=== PATIENT | male | born 1965 | race Caucasian/White ===

== ENCOUNTER 2016-04-08 13:45 | Emergency (ER) | payer BC ==
[2016-04-08 14:22] VITALS: BP 129/83
--- NOTE | 2016-04-08 17:40 | RAD ---
HISTORY: Coughing, rib pain COMPARISONS: Chest x-ray dated November 13, 2014 VIEWS: 4, Frontal view of the chest with frontal and oblique views of the right hemithorax. FINDINGS: There is no displaced rib fracture or pneumothorax. The visualized lungs are clear. And IVC filter is noted IMPRESSION: NO DISPLACED RIB FRACTURE OR PNEUMOTHORAX
[2016-04-08] MEDS ORDERED: HYDROcodone/ACETAMIN 5-325 MG* 1 TAB PO ONE (17:44)
--- NOTE | 2016-04-08 18:40 | ED ---
Christian Castro Billy, scribed for Jace Cole MD on 04/08/16 at 1547 . HPI Chest Pain - HPI Summary HPI Summary: Patient is a 50 year-old male coming to [facility] presenting with constant right- lateral rib pain starting 4-5 days ago. Pain is worse with movement. Patient states he fell on his buttocks 5 days ago. Denies any recent strenuous activity or heavy lifting. Denies N/V. Patient had similar symptoms last year. - History of Current Complaint Chief Complaint: EDChestWallPain Time Seen by Provider: 04/08/16 15:19 Hx Obtained From: Patient Onset/Duration: Started Days Ago, Still Present Timing: Constant Initial Severity: Moderate Current Severity: Moderate Pain Intensity: 6 Pain Scale Used: 0-10 Numeric Chest Pain Location: Right Lateral Chest Pain Radiates: No Character: Other: - rib pain Aggravating Factor(s): Movement Alleviating Factor(s): Nothing Associated Signs and Symptoms: Negative: Nausea, Vomiting - Additional Pertinent History Primary Care Physician: MANASA - Allergy/Home Medications Allergies/Adverse Reactions: Allergies Allergy/AdvReac Type Severity Reaction Status Date / Time Aspirin Allergy Unknown Verified 04/07/13 11:31 Reaction Details Home Medications: Home Medications Insulin GLARGINE(*) [Lantus(*)] 50 units SUBCUT QAM 04/08/16 [History Confirmed 04/08/16] PMH/Surg Hx/FS Hx/Imm Hx Endocrine/Hematology History: Reports: Hx Diabetes Cardiovascular History: Reports: Hx Coronary Artery Disease, Hx Hypercholesterolemia, Hx Hypertension Respiratory History: Reports: Hx Sleep Apnea - evaluation for 08/2013 GI History: Reports: Other GI Disorders - fatty liver History: Reports: Hx Kidney Stones, Other Problems/Disorders - ED Musculoskeletal History: Reports: Other Musculoskeletal History - STROKE, LT SIDED WEAKNESS Neurological History: Reports: 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 Psychiatric History: Reports: Hx Depression - Surgical History Surgery Procedure, Year, and Place: craniotomy, tracheostomy, gastrostomy, ivc filter placement, angioplasty Infectious Disease History: No Infectious Disease History: Denies: Traveled Outside the [place] in Last 30 Days - Family History Known Family History: Positive: Cardiac Disease, Hypertension, Diabetes - Social History Alcohol Use: None Substance Use Type: Reports: None Smoking Status (MU): Former Smoker Type: Cigarettes Have You Smoked in the Last Year: No Review of Systems Positive: Other - right rib pain Negative: Vomiting, Nausea All Other Systems Reviewed And Are Negative: Yes Physical Exam - Summary Physical Exam Summary: Vital signs: reviewed General: Patient is comfortable lying in stretcher with no signs of distress HEENT: within normal limits CHEST: positive left rib cage tenderness at palpation mid clavicular line. Lungs: CTA B/L CVS: S1 & S2 present. No murmurs appreciated. ABDOMEN: Soft, non-tender. No signs of distention. No rebound no guarding, and no masses palpated. Bowel sounds are normal. EXTREMITIES: FROM in all major joints, no edema, no cyanosis or clubbing. NEURO: Alert and oriented x 3. No acute neurological deficits. Speech is normal and follows commands. SKIN: Dry and warm Triage Information Reviewed: Yes Vital Signs On Initial Exam: Initial Vitals Temp Pulse Resp BP Pulse Ox 97.9 F 68 20 129/83 98 04/08/16 14:18 04/08/16 14:18 04/08/16 14:18 04/08/16 14:18 04/08/16 14:18 Vital Signs Reviewed: Yes Diagnostics - Vital Signs Vital Signs Temp Pulse Resp BP Pulse Ox 04/08/16 14:18 97.9 F 68 20 129/83 98 - Laboratory Lab Statement: Any lab studies that have been ordered have been reviewed, and results considered in the medical decision making process. - Radiology Rib XR Xray Interpretation: No Acute Changes Radiology Interpretation Completed By: Radiologist - EKG 1422 EKG Interpretation: NSR 68 bpm, no ST elevation Chest Pain Course/Dx - Course Assessment/Plan: Patient is a 50 year-old male coming to [facility] presenting with constant right-lateral rib pain starting 4-5 days ago. Pain is worse with movement. Patient states he fell on his buttocks 5 days ago. Denies any recent strenuous activity or heavy lifting. Denies N/V. Patient had similar symptoms last year. Rib x-ray shows no fracture or dislocation. It seems that he only has a rib contusion. Therefore he will be given Ceres and discharged home to follow up with PCP. He was instructed to take ibuprofen for pain. If pain increases or does not resolve, he should return to the ED for further assessment and workup. He is hemodynamically stable, A&Ox3. - Chest Pain Differential Diagnosis/HQI/PQRI: Chest Wall, Lower Respiratory Infection - Diagnoses Provider Diagnoses: Rib contusion Discharge - Discharge Plan Condition: Stable Disposition: HOME Prescriptions: HYDROcodone/ACETAMIN 5-325 MG* [Ceres 5-325 TAB*] 1 tab PO Q6H PRN #10 tab MDD max 4 tabs /day PRN Reason: Pain Patient Education Materials: Rib Contusion (ED) Referrals: Nelsy Chairez MD [Primary Care Provider] - The documentation as recorded by the Christian whitehead Billy accurately reflects the service I personally performed and the decisions made by , Jace Cole MD.
== END 2016-04-08 18:04 | disposition home or self-care (01) ==
LOC: ED 13:45
DX: S20.211A Contusion of right front wall of thorax, initial encounter (principal); W19.XXXA Unspecified fall, initial encounter; Y93.9 Activity, unspecified; Y92.9 Unspecified place or not applicable; Y99.9 Unspecified external cause status
CPT/HCPCS: 93005; 99282

== ENCOUNTER 2018-02-01 18:56 | Emergency (ER) | payer BC ==
[2018-02-01] MEDS ORDERED: NS 0.9% 1000 ML* 1,000 ML IV ONE (19:13)
[2018-02-01] MEDS ORDERED: Ondansetron INJ* 2 MG/ML VIAL IV ONE (19:13)
[2018-02-01] MEDS ORDERED: Meclizine TAB* 12.5 MG PO ONE (19:42)
[2018-02-01 19:58] LABS: ABS Basophils 0.1 10^3/ul (0-0.2); ABS Eosinophils 0.3 10^3/ul (0-0.6); ABS Lymphocytes 1.5 10^3/ul (1.0-4.8); ABS Monocytes 0.7 10^3/ul (0-0.8); ABS Neutrophils 9.7 10^3/ul (1.5-7.7); ABS Nucleated RBC 0 10^3/ul; Eosinophil % 2.2 %; Hematocrit 46 % (42-52); Lymphocyte % 12.2 %; Mean Corpuscular HGB Conc 33 g/dl (31-36); Mean Corpuscular Hemoglobin 29 pg (27-31); Mean Corpuscular Volume 87 fL (80-94); Mean Platelet Volume 8.1 fL (7.4-10.4); Nucleated Red Blood Cells % 0.1; Platelet Count 256 10^3/ul (150-450); Red Blood Count 5.26 10^6/ul (4.00-5.40); Red Cell Distribution Width 16 % (10.5-15); White Blood Count 12.4 10^3/ul (3.5-10.8)
[2018-02-01 20:18] LABS: EGFR Non-African American 106.9 (>60)
[2018-02-01 20:50] VITALS: BP 130/74
--- NOTE | 2018-02-01 20:55 | ED ---
Dizziness - HPI Summary HPI Summary: Patient complains of sudden onset dizziness and nausea vomiting 2 at 5:30 PM. Patient states room spinning with motion of his head, increased gait instability. 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 Patient able to ambulate short distances with a brace on his left leg. Baseline left upper extremity function none. Denies facial droop speech change, vision change, HARRISON, symptoms of illness, CP, SOB, fever, cough, sore throat, abdominal pain, change in urine, change in BM. Medical history CAD, obesity, HDL, DM 2, HTN. Patient on aspirin. - History Of Current Complaint Chief Complaint: EDNauseaVomitDiarrh Stated Complaint: DIZZINESS Time Seen by Provider: 02/01/18 19:10 Hx Obtained From: Patient Onset/Duration: Still Present Timing: Constant Severity Initially: Moderate Severity Currently: Moderate Character: Head Spinning, Room Spinning, Lightheaded, Dizzy Aggravating Factor(s): Position Change, Change In Head Position Alleviating Factor(s): Rest Associated Signs And Symptoms: Positive: Nausea, Vomiting, Unsteady Gait - Allergies/Home Medications Allergies/Adverse Reactions: Allergies Allergy/AdvReac Type Severity Reaction Status Date / Time lisinopril Allergy Edema Verified 02/01/18 19:11 PMH/Surg Hx/FS Hx/Imm Hx Endocrine/Hematology History: Reports: Hx Diabetes Cardiovascular History: Reports: Hx Coronary Artery Disease, Hx Hypercholesterolemia, Hx Hypertension, Other Cardiovascular Problems/Disorders - 2010 STROKE LEFT SIDE LIMITATIONS Denies: Hx Pacemaker/ICD Respiratory History: Reports: Hx Sleep Apnea - evaluation for 08/2013 Denies: Hx Asthma GI History: Reports: Other GI Disorders - fatty liver History: Reports: Hx Kidney Stones, Other Problems/Disorders - ED Denies: Hx Renal Disease Musculoskeletal History: Reports: Other Musculoskeletal History - STROKE, LT SIDED WEAKNESS Sensory History: Denies: Hx Hearing Aid Neurological History: Reports: 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 Psychiatric History: Reports: Hx Depression Denies: Hx Panic Disorder - Surgical History Surgery Procedure, Year, and Place: craniotomy, tracheostomy, gastrostomy, VENA CAVA FILTER filter(CARD IN PT HISTORY 2009NORMAL MODE PER DR PARK), angioplasty, cardiac stents, right knee cartilidge removal Infectious Disease History: No Infectious Disease History: Denies: Traveled Outside the [place] in Last 30 Days - Family History Known Family History: Positive: Cardiac Disease, Hypertension, Diabetes - Social History Alcohol Use: None Substance Use Type: Reports: None Smoking Status (MU): Former Smoker Type: Cigarettes Have You Smoked in the Last Year: No Review of Systems Constitutional: Negative Eyes: Negative ENT: Negative Cardiovascular: Negative Respiratory: Negative Positive: Vomiting, Nausea Genitourinary: Negative Musculoskeletal: Negative Skin: Negative Neurological: Negative Psychological: Normal All Other Systems Reviewed And Are Negative: Yes Physical Exam - Summary Physical Exam Summary: During neuro exam patient will not move eyes to the left. However when the , who was sitting on his left, speaks to him, his eyes move to look at her with normal eye movement. Patient also will not smile on command, but smiles when his corrects a joke. Due to inconsistency in neuro exam MRI ordered to rule out stroke. Left-sided weakness in left upper extremity and left lower extremity. Neuro exam of right side extremities normal. Physical exam otherwise unremarkable. Triage Information Reviewed: Yes Vital Signs On Initial Exam: Initial Vitals Temp Pulse Resp BP Pulse Ox 97.4 F 72 16 129/71 96 02/01/18 19:06 02/01/18 19:06 02/01/18 19:06 02/01/18 19:06 02/01/18 19:06 Vital Signs Reviewed: Yes Appearance: Positive: Well-Appearing Skin: Positive: Warm Head/Face: Positive: Normal Head/Face Inspection Eyes: Positive: Normal ENT: Positive: Normal ENT inspection Neck: Positive: Supple Respiratory/Lung Sounds: Positive: Clear to Auscultation Cardiovascular: Positive: Normal Abdomen Description: Positive: Nontender Musculoskeletal: Positive: Normal Neurological: Positive: Normal Psychiatric: Positive: Normal AVPU Assessment: Alert - [place] Coma Scale Best Eye Response: 4 - Spontaneous Best Motor Response: 6 - Obeys Commands Best Verbal Response: 5 - Oriented Coma Scale Total: 15 Diagnostics - Vital Signs Vital Signs Temp Pulse Resp BP Pulse Ox 02/01/18 20:49 69 16 130/74 93 02/01/18 19:06 97.4 F 72 16 129/71 96 - Laboratory Lab Results: Lab Results 02/01/18 02/01/18 Range/Units 19:41 19:41 WBC 12.4 H (3.5-10.8) 10^3/ul RBC 5.26 (4.00-5.40) 10^6/ul Hgb 15.0 (14.0-18.0) g/dl Hct 46 (42-52) % MCV 87 (80-94) fL MCH 29 (27-31) pg MCHC 33 (31-36) g/dl RDW 16 H (10.5-15) % Plt Count 256 (150-450) 10^3/ul MPV 8.1 (7.4-10.4) fL Neut % (Auto) 78.6 % Lymph % (Auto) 12.2 % [place]in % (Auto) 5.9 % Eos % (Auto) 2.2 % Baso % (Auto) 1.1 % Absolute Neuts (auto) 9.7 H (1.5-7.7) 10^3/ul Absolute Lymphs (auto) 1.5 (1.0-4.8) 10^3/ul Absolute Monos (auto) 0.7 (0-0.8) 10^3/ul Absolute Eos (auto) 0.3 (0-0.6) 10^3/ul Absolute Basos (auto) 0.1 (0-0.2) 10^3/ul Absolute Nucleated RBC 0 10^3/ul Nucleated RBC % 0.1 Sodium 137 (135-145) mmol/L Potassium 3.8 (3.5-5.0) mmol/L Chloride 101 (101-111) mmol/L Carbon Dioxide 27 (22-32) mmol/L Anion Gap 9 (2-11) mmol/L BUN 12 (6-24) mg/dL Creatinine 0.76 (0.67-1.17) mg/dL Est GFR ( Amer) 129.3 (>60) Est GFR (Non-Af Amer) 106.9 (>60) BUN/Creatinine Ratio 15.8 (8-20) Glucose 202 H (70-100) mg/dL Calcium 10.0 (8.6-10.3) mg/dL Total Bilirubin 0.40 (0.2-1.0) mg/dL AST 27 (13-39) U/L ALT 35 (7-52) U/L Alkaline Phosphatase 79 (34-104) U/L C-Reactive Protein 2.65 (<8.01) mg/L Total Protein 7.6 (6.4-8.9) g/dL Albumin 4.5 (3.2-5.2) g/dL Globulin 3.1 (2-4) g/dL Albumin/Globulin Ratio 1.5 (1-3) Result Diagrams: 02/01/18 19:41 02/01/18 19:41 Lab Statement: Any lab studies that have been ordered have been reviewed, and results considered in the medical decision making process. Dizzy Course/Dx - Course Course Of Treatment: Patient complains of sudden onset dizziness and nausea vomiting 2 at 5:30 PM. Patient states room spinning with motion of his head, increased gait instability. Patient has history of CVA in 2010 due to hemorrhagic stroke with residual left side weakness. Patient able to ambulate short distances with a brace on his left leg. Baseline left upper extremity function none. Denies facial droop speech change, vision change, HARRISON, symptoms of illness, CP, SOB, fever, cough, sore throat, abdominal pain, change in urine , change in BM. Medical history CAD, obesity, HDL, DM 2, HTN. Patient on aspirin. Physical exam:During neuro exam patient will not move eyes to the left. However when the , who was sitting on his left, speaks to him, his eyes move to look at her with normal eye movement. Patient also will not smile on command, but smiles when his corrects a joke. Due to inconsistency in neuro exam MRI ordered to rule out stroke. Left-sided weakness in left upper extremity and left lower extremity. Neuro exam of right side extremities normal. Physical exam otherwise unremarkable. Vital signs within normal limits and stable. WBC 12.4. Labs otherwise unremarkable. MRI brain negative for acute process. Likely diagnosis vertigo. Patient symptoms improved with meclizine. Patient discharged home in stable condition with Rx for meclizine. - Diagnoses Provider Diagnoses: Vertigo Discharge - Sign-Out/Discharge Documenting (check all that apply): Patient Departure - Discharge Plan Condition: Stable Disposition: HOME Prescriptions: Meclizine TAB* [Antivert 12.5 TAB*] 25 mg PO TID 10 Days #30 tab Patient Education Materials: Vertigo (ED) Referrals: Nelsy Chairez MD [Primary Care Provider] - Additional Instructions: Follow-up with primary care. Return to the ED for any new or worsening symptoms - Billing Disposition and Condition Condition: STABLE Disposition: Home
== END 2018-02-01 21:09 | disposition home or self-care (01) ==
LOC: ED 18:56
DX: R42 Dizziness and giddiness (principal); R11.2 Nausea with vomiting, unspecified; I10 Essential (primary) hypertension; I25.10 Atherosclerotic heart disease of native coronary artery without angina pectoris; Z86.73 Personal history of transient ischemic attack (TIA), and cerebral infarction without residual deficits; Z87.891 Personal history of nicotine dependence
CPT/HCPCS: 36415; 70551; 80053; 85025; 86140; 96361; 96374; 99283; A9270-GY; J2405